=== PATIENT | male | born 1965 | race Caucasian/White ===

== ENCOUNTER 2025-01-17 14:20 | Emergency (ER) | payer OTHER, SELFPAY ==
[2025-01-17 14:25] VITALS: BP 130/86
--- NOTE | 2025-01-17 15:41 | ED.GENMED ---
History of Present Illness
General
Chief Complaint: Musculo-Skeletal Complaint
Source: patient
Exam Limitations: none
Time Seen by Provider: 01/17/25 15:32
History of Present Illness
History of Present Illness:
See MDM
Past History
Past History
ED Past Medical History: Other (Meniere's)
ED Past Surgical History: None
Social History
Tobacco: Non-smoker
Living: with family
Phy Exam
Physical Exam
Physical Exam:
See MDM
Course
Orders/Labs/Results
Orders:
Orders
01/17/25 14:24
Shoulder, Left 2 View CR [CR Shoulder - Left Min 2 View*] Urgent
Comment:
Reason For Exam: pain
Vital Signs
Initial and Last Documented VS:
Initial Vital Signs
Temp Pulse Resp BP Pulse Ox
98.1 F 94 18 130/86 97
01/17/25 14:25 01/17/25 14:25 01/17/25 14:25 01/17/25 14:25 01/17/25 14:25
Last Documented Vital Signs
Temp Pulse Resp BP Pulse Ox
98.1 F 94 18 130/86 97
01/17/25 14:25 01/17/25 14:25 01/17/25 14:25 01/17/25 14:25 01/17/25 14:25
MDM/Problems Addressed
Differential Diagnosis Includes:
Note:
CHIEF COMPLAINT(S)
Shoulder pain following work-related injury.
HISTORY OF PRESENT ILLNESS
The patient is a 59-year-old male who reports sustaining a Left shoulder injury while at work. The incident occurred while the patient was attempting to open a secure door and felt a popping sensation in the shoulder. The event was followed by a
burning sensation centrally located in the shoulder, which has since become less painful. However, certain movements, particularly lifting and rotating actions, exacerbate the pain, especially with the arm behind the back or when trying to lift the
arm upward. The patient describes the pain as unusual and concerning, having never experienced similar discomfort before. The pain predominantly affects the right shoulder, and the patient is right-handed, which has an impact on his ability to
perform work duties that are physically demanding.
PHYSICAL EXAM
General: Alert, no acute distress.
Skin: Warm, dry.
Head: Normocephalic, atraumatic.
Neck: Supple, trachea midline.
Eye, Ears, Nose, Mouth, and Throat: Oral mucosa moist.
Cardiovascular: Normal peripheral perfusion, no edema.
Respiratory: Respirations are non-labored.
Gastrointestinal: Abdomen nondistended.
Back: Normal range of motion, normal alignment.
Musculoskeletal: Left arm is neurovascularly intact. Limited range of motion and muscle strength secondary to pain. Mild tenderness to the left AC joint. Mild tenderness with left shoulder duction
Neurological: Alert
Psychiatric: Cooperative, appropriate mood and affect.
PLAN
The patient was advised to rest the affected shoulder and to take Motrin as needed for pain management. Recommendations include a follow-up consultation with an phlebotomy specialist who may consider further imaging such as an MRI for detailed
assessment of possible rotator cuff involvement. A work note was provided to initiate the workmans compensation process, suggesting no use of the affected arm until further evaluation and clearance by Workmen's Comp. or an orthopedic professional. A
copy of the patients shoulder X-ray was prepared for further review.
The left shoulder x-ray was independently reviewed by myself and there is no osseous abnormality. In addition, the radiology report was also evaluated
DIFFERENTIAL DIAGNOSIS
The Differential Diagnosis includes, in no particular order and is not limited to:
1. Shoulder strain
2. Acromioclavicular joint strain
3. Rotator cuff tear
4. Bursitis
5. Tendinitis
Disposition:
SUMMARY OF ENCOUNTER
The patient was seen in the emergency department following a shoulder injury sustained at work. The injury was described as a popping sensation in the shoulder while attempting to open a secure door, leading to a burning sensation and persistent
pain with certain movements. We examined the possibility of an acromioclavicular joint strain or a potential rotator cuff sprain. Recommendations were made for rest, NSAIDs, and possible physical therapy.
PLAN
The plan includes advising the patient to rest the shoulder, use nonsteroidal anti-inflammatory drugs (NSAIDs) for pain management, and potentially engage in physical therapy. A follow-up consultation with an phlebotomy specialist to reassess and
make decisions regarding return to work without restrictions was advised.
PATIENT EDUCATION AND COUNSELING
The patient was informed about the likelihood of an acromioclavicular joint sprain or a potential rotator cuff sprain. The importance of rest, use of NSAIDs for pain relief, and consideration for physical therapy was discussed. The patient was also
advised to have their shoulder re-evaluated by orthopedics or through workers compensation for [id number] decisions.
FOLLOW-UP INSTRUCTIONS
The patient is advised to follow up with an phlebotomy specialist and through their workmans compensation process for further evaluation and clearance of return to work.
MEDICATION RECONCILIATION
Nonsteroidal anti-inflammatory drugs (NSAIDs) were recommended for pain management.
MEDICAL DECISION MAKING
1. Number and Complexity of Problems Addressed:
Chronic conditions affecting care with differential diagnosis including acromioclavicular joint strain, rotator cuff tear, and shoulder strain.
2. Data:
Category 1:
The patients situation and symptoms were reviewed, and potential diagnoses were identified based on the description of the injury.
3. Risk:
Prescription medications for pain management (NSAIDs) were considered necessary for managing discomfort.
DIAGNOSIS
Acromioclavicular joint sprain - ICD-10: S43.51XA
Rotator cuff sprain - ICD-10: S46.011A
*Pulse Oximetry
SaO2: 97
Oxygen Mode of Delivery: Room air
Patient hypoxic: no
*Critical Care Note
Total Time (30-74mins, 75-104mins- exclusive of procedures): Not Applicable
ED Attending Note
-
Portions of this chart may have been created with voice recognition software.� Occasional wrong word or��sound alike� substitutions may have occurred due to the inherent limitations of voice recognition software.
Discharge Plan
Departure
Patient Disposition: Home (Routine Discharge)
Date of Disposition: 01/17/25
Time of Disposition: 15:45
Patient with high blood pressure during this ER visit?: No
Discharge Problem:
Sprain of left shoulder joint
Instructions: Shoulder Sprain ED
Referrals:
Jatinder Herring MD [Active, Orthopedics]
Stand Alone Forms: Return to Work
Interventions
Interventions:
*Risk Screen - Suicide Last Done: 01/17/25 14:25
*General Assessment Last Done: 01/17/25 14:25
Discharge Date and Time
Print Language: AFGHAN
== END 2025-01-17 16:09 | disposition home or self-care (01) ==
LOC: EMR 14:20
PROVIDERS: EMERGENCY PHYSICIAN Student in an Organized Health Care Education/Training Program
DX: S43.52XA Sprain of left acromioclavicular joint, initial encounter (principal); R20.8 Other disturbances of skin sensation; X58.XXXA Exposure to other specified factors, initial encounter; Y93.89 Activity, other specified; Y92.89 Other specified places as the place of occurrence of the external cause; Y99.0 Civilian activity done for income or pay
CPT/HCPCS: 99283; 73030